=== PATIENT | female | born 1970 | race Caucasian/White ===

== ENCOUNTER → 2016-11-14 | Outpatient (CLI) | payer OTHER ==
[~2016-11-14] MED LIST: ALPR.5 PO; AMIT25TA9 PO; ELMI100C PO; LACTCAP8 PO; LEXA5TAB PO; MULT-6 PO; PROP10TA6 PO; SERO50TA PO; TRIL150T PO
[2016-11-14 12:14] LABS: AUTOMATED NEUTROPHIL # 6.3 TH/MM3 (1.8-7.7); BASOPHIL # 0.1 TH/MM3 (0-0.2); BASOPHIL % 0.7 % (0.0-2.0); EOSINOPHIL # 0.1 TH/MM3 (0-0.4); EOSINOPHIL % 1.1 % (0.0-4.0); HEMATOCRIT 40.4 % (35.0-46.0); HEMO FLAGS DIFF FINAL; LYMPH % 28.9 % (9.0-44.0); LYMPHOCYTE # 2.9 TH/MM3 (1.0-4.8); MEAN CELL VOLUME 92.3 FL (80.0-100.0); MEAN CORPUSCULAR HEMOGLOBIN 32.5 PG (27.0-34.0); MEAN CORPUSCULAR HGB CONC 35.2 % (32.0-36.0); MONO % 6.1 % (0.0-8.0); NEUT % 63.2 % (16.0-70.0); PLATELET COUNT 235 TH/MM3 (150-450); RED BLOOD COUNT 4.37 MIL/MM3 (4.00-5.30); WHITE BLOOD COUNT 9.9 TH/MM3 (4.0-11.0)
[2016-11-14 12:20] LABS: BLOOD, URINE NEG (NEG); COMMENT (UR) CULT NOT INDICATED; CULTURE IF INDICATED CULT NOT INDICATED; GLUCOSE,URINE NEG (NEG); KETONE, URINE NEG (NEG); MUCUS URINE FEW /lpf (OCC); NITRITE,URINE NEG (NEG); SQUAMOUS EPITHELIAL CELL URINE 1 /hpf (0-5); URINE COLOR COLORLESS (YELLW/STRAW)
[2016-11-14 12:51] LABS: ALT (GPT) 17 U/L (10-53); ANION GAP 5 MEQ/L (5-15); AST (GOT) 8 U/L (15-37); BLOOD UREA NITROGEN 16 MG/DL (7-18); CHLORIDE 107 MEQ/L (98-107); GLOMERULAR FILTRATION RATE 105 ML/MIN (>89); GLUCOSE,FASTING 85 MG/DL (74-99); POTASSIUM 4.2 MEQ/L (3.5-5.1); SODIUM (NA) 141 MEQ/L (136-145)
[2016-11-14 12:55] LABS: ALKALINE PHOSPHATASE 52 U/L (45-117); TOTAL BILIRUBIN ADULT 0.4 MG/DL (0.2-1.0)
[2016-11-14 12:57] LABS: BHCG SCREEN QUALITATIVE LESS THAN 1 MIU/ML (0-5)
== END ==
LOC: CPRE 10:29
PROVIDERS: ATTEND Obstetrics & Gynecology Gynecology
DX: R10.2 Pelvic and perineal pain (principal); N30.10 Interstitial cystitis (chronic) without hematuria
CPT/HCPCS: 36415; 80053; 81001; 84703; 85025

== ENCOUNTER → 2016-11-24 | Day surgery (SDC) | payer OTHER ==
--- NOTE | 2016-11-14 16:35 | MH ---
cc: SKY HINOJOSA MD,WESTON Zavala MD DATE OF ADMISSION 11/24/2016 DATE OF 1970 REASON FOR ADMISSION Scheduled for admission on 11/24 for laparoscopy and cystoscopy for chronic pelvic pain. HISTORY OF THE PRESENT ILLNESS The patient is a 46-year-old white female 2, para 0 who has had a long history of chronic pelvic pain suggestive of endometriosis and interstitial cystitis. She has had distant history of laparoscopy and a relatively recent cystoscopy that showed no sign of Hunner ulcers or other significant abnormality. Her symptomatology is mainly limited to the right side. It is intermittent, 6 on a scale of 10. Does interrupt her quality of life. Also has issues with urinary frequency and dysuria. The patient has opted for surgical evaluation and intervention. PAST MEDICAL HISTORY The patient's medical history notable for: Mood disorder. Negative for heart, lung, liver disease, hypertension, diabetes, stroke. PAST SURGICAL HISTORY 1. She has had laparoscopy in 2007. 2. Cystoscopy in 2006 and 2015. MEDICATIONS 1. Seroquel 50 mg q.h.s. 2. Lexapro 5 mg daily. 3. Trileptal 150 milligrams q.h.s. 4. Xanax 0.5 mg daily p.r.n. SOCIAL HISTORY Smokes half pack a day. No alcohol or drugs. GYNECOLOGIC HISTORY No STDs or abnormal Pap smears. Periods are once a month. OBSTETRICAL HISTORY FAMILY HISTORY Noncontributory. ALLERGIES VICODIN. REVIEW OF SYSTEMS As above. No chest pain, orthopnea, PND. No nausea, vomiting, fever or chills. No vaginal bleeding or discharge. Remainder of 14-point review negative. PHYSICAL EXAMINATION VITAL SIGNS: She is afebrile. Vital signs stable. Blood pressure is 120/70, height 5 feet 6 inches, weight is 157. BMI is 25. GENERAL: Patient is alert and oriented in no acute stress. No sign of cognitive dysfunction or depression. HEENT: Within normal limits. NECK: Supple. No JVD. CHEST: Clear. HEART: Regular rate and rhythm. ABDOMEN: Soft, nontender. No hepatosplenomegaly. No suprapubic tenderness. PELVIC: Examination will be detailed under anesthesia. EXTREMITIES: Normal. SKIN: Without rashes. NEUROLOGIC: Nonfocal. No DVT signs. ASSESSMENT The patient with chronic pelvic pain, unresponsive to medicinal therapy. The patient and I discussed options for management and treatment. She is aware that there are risks, benefits, alternatives to surgery and that surgery does not guarantee that her pain would be relieved and there are risks of surgical complications including damage to surrounding organs, bleeding, infection, damage to bladder and bowel and need for extensive surgery with prolonged convalescence. The patient has made an informed choice to proceed. We will move forward with laparoscopy, consider either an umbilical approach or left upper quadrant. We will also perform diagnostic cystoscopy in the same setting with her history of interstitial cystitis. We will use Ancef 1 gram IV for antibiotic prophylaxis and DVT prophylaxis with sequential compression device. Anticipate outpatient procedure. Sky Hinojosa MD CS/KK /3:13 PM /4:14 PM
[~2016-11-24] VITALS: Ht 167.6 cm; Wt 70.9 kg
[~2016-11-24] MED LIST changes: +*morphine SULFATE 8 MG/ML PERIprocedure ONLY ONE; +ACETAMINOPHEN 1000 MG/100 ML VIAL IV ONE; +DEXAMETHASONE SOD PHOS 4 MG/ML VIAL ONE; +DO NOT ADM ANY ANTICOAGULANT DRUGS PRN; +FUROSEMIDE 40 MG/4 ML VIAL ONE; +KETOROLAC TROMETHAMINE 10 MG TAB PO PRN; +KETOROLAC TROMETHAMINE 30 MG/ML (IVP) VIAL IV PUSH PRN; +KETOROLAC TROMETHAMINE 60 MG/2 ML (IM) VIAL IM ONE; +LACTATED RINGER'S 1000 ML INJ 1,000 ML IV ONE; +LACTATED RINGER'S 1000 ML INJ 1,000 ML ONE; +LIDOCAINE 1%/EPINEPHrine 1:100,000 SOLN 50 ML VIAL ONE; +MIDAZOLAM HCL 2 MG/2 ML VIAL ONE; +NEOSTIGMINE 3 MG/3 ML SYR IV ONE; +ONDANSETRON HCL 4 MG/2 ML VIAL IV PUSH ONE; +ONDANSETRON HCL 4 MG/2 ML VIAL IV PUSH PRN; +PROPOFOL 200 MG/20 ML AMP IV ONE; +ceFAZolin 2 GM PREMIX 50 ML ONE; +ePHEDrine/NS 25 MG/5 ML SYR IV ONE; +fentaNYL CITRATE 250 MCG/5 ML AMP ONE
[2016-11-24 06:30] VITALS: BP 123/89; PULSE 92; RESP 16; TEMP 98.1; O2SAT 99
--- NOTE | 2016-11-24 09:52 | PD.OP ---
Operative Report Date of Surgery: Nov 24, 2016 Preoperative Diagnosis: (1) Chronic pelvic pain in female (2) IC (interstitial cystitis) Postoperative Diagnosis: (1) IC (interstitial cystitis) (2) Chronic pelvic pain in female (3) Adnexal adhesions Procedure: LYSIS OF ADHESIONS INVOLVING BOWEL BILATERAL SALPINGECTOMY CYSTOSCOPY AND HYDRODISTENTION Anesthesia: GETA/OGT Surgeon: Jose Francisco Hicks Mass Spectrometry Manager(s): [place] X 1 Operation and Findings: LYSIS OF ADHESIONS OF BOWEL AND ADNEXA BILATERAL HYDROSALPINX NORMAL BLADDER WITH CAPACITY OF 400 CC SEE DICTATED NOTE FOR DETAILS EBL 5 CC FLIUD 1000 CC NO DRAIN NO COMPLICATIONS TO RR STABLE Jose Francisco Hicks MD Nov 24, 2016 09:52
[2016-11-24 10:40] VITALS: BP 118/78; PULSE 64; RESP 16; TEMP 96.7; O2SAT 100
--- NOTE | 2016-11-28 23:29 | MP ---
cc: SKY HINOJOSA DATE OF SURGERY 11/24/16 PREOPERATIVE DIAGNOSES 1. Right-sided chronic pelvic pain 2. Interstitial cystitis/bladder pain syndrome POSTOPERATIVE DIAGNOSES 1. Right-sided chronic pelvic pain 2. Interstitial cystitis/bladder pain syndrome 4. Adhesions of the uterus to the abdominal wall on the right with tension on the round ligament. 5. Hydrosalpinx bilaterally. 6. Adhesions of bowel to the left adnexa PROCEDURE 1. Laparoscopic lysis of adhesions involving bowel. 2. Bilateral salpingectomy. 3. Diagnostic cystoscopy coupled with a diagnosis of interstitial cystitis. SURGEON Mira Hinojosa MD ANESTHESIA Endotracheal with OG tube BLOOD LOSS Less than 5 mL URINE OUTPUT 100 mL JOY LOADER [place] staff x1 FINDINGS Genitalia normal pop Q score Aa is -3, Ap is -3, point C is -10, total vaginal length is 10. General hiatus is four. Perineal body is five. Uterus is anteverted, adhesed to the right abdominal wall by relatively dense adhesions. The round ligament is under tension on that right side. The tube is intertwined and wrapped around these adhesions on the right side. The tube on the left is clubbed and hydropic and adhered to the posterior wall of the uterus. Bowel on the right is mobile. Appendix is normal. On the left, bowel is adhesed to the adnexa by filmy adhesions. Upper abdomen normal. Gallbladder, liver unremarkable. Diagnostic cystoscopy shows squamous metaplasia of the trigone, but no significant ulcerations or trabeculations or glomerulations. Anesthetic bladder capacity is 400 cc. SPECIMENS Right and left tube COMPLICATIONS None DISPOSITION Recovery room stable DISPOSITION Needle, sponge count correct. DRAINS None. PROPHYLAXIS The antibiotic prophylaxis Ancef 1 gram, DVT prophylaxis sequential compression device. Time-out procedure per protocol INDICATIONS FOR PROCEDURE Patient with symptomatic pelvic pain on the right side unresponsive to medicinal therapy. The patient has history of interstitial cystitis. PROCEDURE IN DETAIL The patient was taken to the operating theater and prepped and draped in fashion appropriate for planned procedure. She was in dorsal lithotomy position with careful attention paid to placement of the legs in stirrups to avoid undue stress to sensitive neurovascular structures. Above findings noted. Neurovascularly intact documented. Clemons catheter was placed. The umbilicus was infiltrated with epinephrine-Lidocaine solution. A 5 mm scope was placed under direct visualization. Gas was insufflated, above findings noted. Trendelenburg position instituted. A left lower quadrant incision was made and, using a needle as a guide, a 5-mm trocar was placed. The Harmonic scalpel was used to lyse the adhesions of the uterus to the abdominal wall. This allowed the uterus to be more mobile and then we did place an 8-mm trocar suprapubically under direct visualization. On the adnexa on the right the tube was densely adherent to these adhesions and hydropic. Also the round ligament was under tension. The tube was removed after identifying the ureter and infundibulopelvic ligament. Harmonic energy was used. Tube was removed without difficulty. The round ligament was divided and this decreased the tension considerably on the round ligament. The left side bowel was overlying the adnexa. Adhesions were taken down with Harmonic energy making sure to stay clear of the colon. Once the colon was mobilized, we were able to identify the tube and the ovary on the left side. The tube was hydropic and adhesed to the posterior wall of the uterus. The tube was taken with standard salpingectomy technique. The ovary was normal so it was left intact. The ureter was identified prior to salpingectomy. At this point, the uterus is much more mobile. The ovaries were normal on each side and left in place. No damage to the bowel. Upper abdomen normal, appendix normal. Gas was expressed. All areas were hemostatic with and without gas pressure. We did place hemostatic powder over the areas of dissection for added reassurance. The skin was closed with 4-0 Monocryl and Dermabond. In light of the patient's history of interstitial cystitis and bladder pain issues, we addressed cystoscopy and hydrodistention with sterile water. Above findings noted. No significant ulcerations, trabeculations or glomerulations noted. Anesthetic bladder capacity 400 cc. The procedure concluded. The patient reversed from anesthesia to recovery room in stable condition. Should the patient have issues with continued pain or bleeding, she may be a reasonable laparoscopic hysterectomy candidate. She has excellent pelvic support and a very high point C. She would should be very difficult to access for vaginal hysterectomy without laparoscopic assistance. MD LYDIA Hernandez/ /9:21 AM /11:04 PM
== END | disposition home or self-care (01) ==
LOC: HSDC 05:58
PROVIDERS: ATTEND Obstetrics & Gynecology Gynecology
DX: N30.10 Interstitial cystitis (chronic) without hematuria (principal); N83.8 Other noninflammatory disorders of ovary, fallopian tube and broad ligament; N73.6 Female pelvic peritoneal adhesions (postinfective); R30.0 Dysuria; R35.0 Frequency of micturition; N70.11 Chronic salpingitis; R10.2 Pelvic and perineal pain; G89.29 Other chronic pain; F17.210 Nicotine dependence, cigarettes, uncomplicated
CPT/HCPCS: 00840; 52000; 58661; 88305; J0131; J0690; J1100; J1885; J1940; J2250; J2270; J2405; J2710; J3010; J7120